=== PATIENT | female | born 1935 | race Hispanic/Latino ===

== ENCOUNTER → 2017-03-14 | Outpatient (CLI) | payer MEDICARE ==
[~2017-03-14] MED LIST: FISH1CAP49 PO; LISI-613 PO; LOVA20TA3 PO; MULT-1052 PO; SITA1TAB6 PO; VITAMIN B12 PO
== END ==
LOC: RAH 10:36
PROVIDERS: ATTEND Internal Medicine Gastroenterology
DX: M47.895 Other spondylosis, thoracolumbar region (principal); M41.80 Other forms of scoliosis, site unspecified; Q25.46 Tortuous aortic arch; Z90.49 Acquired absence of other specified parts of digestive tract
CPT/HCPCS: 71046

== ENCOUNTER 2017-03-26 06:42 | Day surgery (SDC) | payer MEDICARE ==
[~2017-03-26] VITALS: Ht 152.4 cm; Wt 41.5 kg
[2017-03-26 06:49] VITALS: BP 185/64
[2017-03-26] MEDS ORDERED: SODIUM CHLORIDE 0.9% 1000ML 1,000 ML IV ONE (06:49)
[2017-03-26] MEDS ORDERED: PROPOFOL 10 MG/ML 20ML VIAL IV ONE (08:43)
[2017-03-26 08:51] VITALS: BP 106/44
== END 2017-03-26 09:24 | disposition home or self-care (01) ==
LOC: ENDO 06:42 → DAH 06:42 → ENDO 09:24
PROVIDERS: ATTEND Internal Medicine Gastroenterology
DX: K52.9 Noninfective gastroenteritis and colitis, unspecified (principal); Z80.0 Family history of malignant neoplasm of digestive organs; I10 Essential (primary) hypertension; E78.5 Hyperlipidemia, unspecified; E11.9 Type 2 diabetes mellitus without complications; Z79.899 Other long term (current) drug therapy; Z90.710 Acquired absence of both cervix and uterus
CPT/HCPCS: 45380; 82948 ×2; 88305; 93005; A4606; J2704; J7030